=== PATIENT | female | born 1945 | race Hispanic/Latino ===

== ENCOUNTER 2017-11-17 09:55 | Outpatient (CLI) | payer MEDICARE, MEDICAID | END 2017-11-17 09:56 | disposition home or self-care (01) | LOC: BICMRI 09:55 | PROVIDERS: ATTEND Psychiatry & Neurology Neurology | DX: M47.892 Other spondylosis, cervical region (principal); M99.81 Other biomechanical lesions of cervical region; M48.02 Spinal stenosis, cervical region | CPT/HCPCS: 72141 ==

== ENCOUNTER 2017-12-09 12:07 | Outpatient (CLI) | payer MEDICARE, MEDICAID ==
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
== END 2017-12-09 12:08 | disposition home or self-care (01) ==
LOC: BICRAD 12:07
PROVIDERS: ATTEND Family Medicine
DX: M54.5 Low back pain (principal); M47.896 Other spondylosis, lumbar region; M53.3 Sacrococcygeal disorders, not elsewhere classified; M16.11 Unilateral primary osteoarthritis, right hip
CPT/HCPCS: 36415; 72100; 80053; 80061; 82043; 83036; 84439; 84443; 84481

== ENCOUNTER 2018-01-06 11:11 | Outpatient (CLI) | payer MEDICARE, MEDICAID | END 2018-01-06 11:12 | disposition home or self-care (01) | LOC: BICMAMMO 11:11 | PROVIDERS: ATTEND Family Medicine | DX: Z12.31 Encounter for screening mammogram for malignant neoplasm of breast (principal); R92.1 Mammographic calcification found on diagnostic imaging of breast; Z80.3 Family history of malignant neoplasm of breast | CPT/HCPCS: 77063; 77067 ==

== ENCOUNTER 2018-03-17 12:13 | Outpatient (CLI) | payer MEDICARE, OTHER ==
--- NOTE | 2018-03-17 14:15 | RAD ---
CERVICAL SPINE 3 VIEWS: Date: 03/17/18 HISTORY: Cervical radiculopathy, preoperative evaluation. FINDINGS: Upright neutral, flexion, extension, and lateral views of the cervical spine are performed. Fairly ex tensive multilevel disc osteophytosis changes are noted, including C4-C5, C5-C6, and C6-C7. The C7-T1 and T1 vertebral body regions are obscured. No prevertebral abnormal soft tissue swelling. Minimal m otion artifact. No evidence for significant abnormal translation between flexion and extension. IMPRESSION: Fairly extensive cervical spondylosis without evidence for abnormal translation between flexion and e xtension. POS: [facility]
== END 2018-03-17 12:14 | disposition home or self-care (01) ==
LOC: BICRAD 12:13
PROVIDERS: ATTEND Neurological Surgery
DX: M47.22 Other spondylosis with radiculopathy, cervical region (principal); M50.30 Other cervical disc degeneration, unspecified cervical region; M50.00 Cervical disc disorder with myelopathy, unspecified cervical region
CPT/HCPCS: 72040

== ENCOUNTER 2018-05-31 13:58 | Outpatient (CLI) | payer MEDICARE, MEDICAID ==
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
== END 2018-05-31 13:59 | disposition home or self-care (01) ==
LOC: TBSIIMAG 13:58
PROVIDERS: ATTEND Neurological Surgery
DX: M50.20 Other cervical disc displacement, unspecified cervical region (principal); M47.12 Other spondylosis with myelopathy, cervical region; M47.22 Other spondylosis with radiculopathy, cervical region
CPT/HCPCS: 72040

== ENCOUNTER 2018-06-09 20:41 | Inpatient (IN) | payer MEDICARE, OTHER ==
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
[2018-06-09 22:00] LABS: Prothrombin Time 13.3 SEC (12.0-14.7)
[2018-06-09 22:01] LABS: #Eosinphils 0.1 thou/uL (0.0-0.7); #Lymphocytes 1.5 thou/uL (1.20-3.40); %Basophils 0.4 % (0.0-1.0); %Lymphocytes 11.6 % (21.0-51.0); %Monocytes 7.8 % (0.0-10.0); %Neutrophils 79.2 % (42.0-75.0); Hemoglobin 14.2 g/dL (12.0-16.0); Mean Corpuscular HGB CONC 34.5 g/dL (32.0-36.0); Mean Corpuscular Hemoglobin 30.6 pg (27.0-31.0); Mean Corpuscular Volume 88.8 fL (78.0-98.0); Mean Platelet Volume 8.3 fL (7.4-10.4); Platelet Count 177 thou/uL (130-400); RBC Distribution Width 11.9 % (11.5-14.5); Red Blood Cell (RBC) Count 4.62 mill/uL (4.20-5.40); White Blood Cell (WBC) Count 12.7 thou/uL (4.8-10.8)
[2018-06-09 22:19] LABS: ALT (SGPT) 22 U/L (8-55); AST (SGOT) 25 U/L (5-34); Alkaline Phosphatase 115 U/L (40-150); Anion Gap 12 mmol/L (10-20); BUN (Urea Nitrogen) 15 mg/dL (9.8-20.1); Bilirubin, Total 0.4 mg/dL (0.2-1.2); CK (CPK) 320 U/L (29-168); Calc. Creatinine Clearance 0 mL/min (70-130); Calcium 9.2 mg/dL (7.8-10.44); Carbon Dioxide 27 mmol/L (23-31); Chloride 103 mmol/L (98-107); Estimated GFR-MDRD 77; Globulin 2.6 g/dL (2.4-3.5); Glucose 165 mg/dL (83-110); Potassium 3.7 mmol/L (3.5-5.1); Protein, Total 6.6 g/dL (6.0-8.3); Sodium 138 mmol/L (136-145)
[2018-06-09] MEDS ORDERED: Ondansetron PF 4 MG/2 ML Vial ONE (22:21)
[2018-06-09] MEDS ORDERED: Morphine 4 MG/ML VIAL ONE (22:21)
[2018-06-10] MEDS ORDERED: HYDROcodone/Acetaminophen 5/325 mg Tablet PO PRN ×2 (02:31)
[2018-06-10] MEDS ORDERED: Sodium Chloride 0.9% 1,000 ML IV SCH ×2 (02:31→02:33)
[2018-06-10] MEDS ORDERED: Ondansetron PF 4 MG/2 ML Vial IVP PRN ×2 (02:31→02:33)
[2018-06-10] MEDS ORDERED: Ondansetron ODT 4 MG TAB SL PRN (02:31)
[2018-06-10] MEDS ORDERED: Acetaminophen 325 MG TAB PO PRN (02:31)
[2018-06-10] MEDS ORDERED: Dextrose 5% in Water 1,000 ML IV PRN (02:33)
[2018-06-10] MEDS ORDERED: Dextrose 50% Abboject 50 ML SYRINGE SLOW IVP PRN (02:33)
[2018-06-10] MEDS ORDERED: hydrALAZINE 20 MG/ML VIAL SLOW IVP PRN (02:33)
[2018-06-10] MEDS ORDERED: HumaLOG 300 UNITS/3 ML VIAL SC PRN (02:33)
[2018-06-10] MEDS ORDERED: traMADol HCl 50 MG TAB PO PRN ×3 (02:33→09:02)
[2018-06-10] MEDS ORDERED: Promethazine HCl 25 MG/ML VIAL IM PRN (02:33)
[2018-06-10 02:37] VITALS: BMI 35.7
[2018-06-10] MEDS: Morphine 4 MG/ML VIAL SLOW IVP PRN ×2 (02:51→06:29)
[2018-06-10] MEDS: Acetaminophen 1,000 MG in Premix Bag 1 BAG IVPB SCH ×2 (02:57→08:36)
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
[2018-06-10] MEDS: Ibuprofen 600 MG TAB PO SCH ×2 (05:45→14:55)
[2018-06-10] MEDS ORDERED: Famotidine 20 MG TAB PO SCH (09:00)
[2018-06-10] MEDS ORDERED: Polyethylene Glycol 3350 17 GM Packet PO SCH (09:00)
[2018-06-10] MEDS ORDERED: Senokot S 8.6-50 MG TAB PO SCH (09:00)
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
[2018-06-10] MEDS ORDERED: Ibuprofen 600 MG TAB PO SCH (09:15)
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
[2018-06-10] MEDS ORDERED: traMADol HCl 50 MG TAB PO SCH (12:00)
[2018-06-10] MEDS ORDERED: Acetaminophen 500 MG TAB PO SCH (12:00)
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
[2018-06-10 15:37] VITALS: BP 129/77; TEMP 98.3
[2018-06-10] MEDS ORDERED: metFORMIN 500 MG TAB PO SCH (21:00)
[2018-06-10] MEDS ORDERED: Pravastatin Sodium 20 MG TAB PO SCH (21:00)
[2018-06-10] MEDS ORDERED: Gabapentin 300 MG CAP PO SCH (21:00)
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
[2018-06-11] MEDS ORDERED: Losartan 25 MG TAB PO SCH (09:00)
[2018-06-11] MEDS ORDERED: Aspirin 81 mg Enteric Coated Tablet PO SCH (09:00)
== END 2018-06-10 16:39 | disposition home or self-care (01) | DRG 563 ==
LOC: ERS 20:41 → SURG A 06-10 02:11
PROVIDERS: ADMIT Specialist; ATTEND Specialist
DX: S92.001A Unspecified fracture of right calcaneus, initial encounter for closed fracture (principal); S30.1XXA Contusion of abdominal wall, initial encounter; S80.02XA Contusion of left knee, initial encounter; I10 Essential (primary) hypertension; E78.5 Hyperlipidemia, unspecified; I65.09 Occlusion and stenosis of unspecified vertebral artery; I65.29 Occlusion and stenosis of unspecified carotid artery; J45.909 Unspecified asthma, uncomplicated; E11.51 Type 2 diabetes mellitus with diabetic peripheral angiopathy without gangrene; Z90.49 Acquired absence of other specified parts of digestive tract; Z90.710 Acquired absence of both cervix and uterus; Z79.84 Long term (current) use of oral hypoglycemic drugs; Z88.8 Allergy status to other drugs, medicaments and biological substances; Z91.010 Allergy to peanuts; V89.2XXA Person injured in unspecified motor-vehicle accident, traffic, initial encounter
CPT/HCPCS: 36415; 36416; 70450; 70498; 71045; 71260; 72125; 72170; 74177; 80053; 82550; 84484; 85025; 85610; 93005; G0390; J0131; J2270; J2405

== ENCOUNTER 2023-06-03 11:38 | Outpatient (CLI) | payer MEDICARE, MEDICAID | END 2023-06-03 11:39 | disposition home or self-care (01) | LOC: BICMAMMO 11:38 | PROVIDERS: ATTEND Nurse Practitioner | DX: Z12.31 Encounter for screening mammogram for malignant neoplasm of breast (principal); Z80.3 Family history of malignant neoplasm of breast | CPT/HCPCS: 77063; 77067 ==

== ENCOUNTER 2024-10-05 06:14 | Day surgery (SDC) | payer OTHER, MEDICAID ==
[2024-10-04 08:29] VITALS: BMI 33.7
[~2024-10-05 06:14] MED LIST: Fluorouracil 100 MG, Enoxaparin 25 MG, EPINEPHrine 0.3 MG in Ophthalmic Irrigation Solu... IRR SCH
[2024-10-05] MEDS ORDERED: Cyclopentolate 1% Opth Drop 2 ML BOT ONE (06:55)
[2024-10-05] MEDS ORDERED: Lidocaine 1% PF 5 ML VIAL ONE ×2 (08:11→08:30)
[2024-10-05] MEDS ORDERED: PROPOFOL 20 ML ONE (08:12)
[2024-10-05] MEDS ORDERED: CEFAZOLIN 1 GM VIAL ONE (08:30)
[2024-10-05] MEDS ORDERED: Lidocaine 4% PF 5 ML AMP ONE (08:30)
[2024-10-05] MEDS ORDERED: Enoxaparin 30 MG (0.3 mL) SYRINGE ONE (08:30)
[2024-10-05] MEDS ORDERED: Maxitrol 0.1% Opth Oint 3.5 GM TUBE ONE (08:30)
== END 2024-10-05 10:25 | disposition home or self-care (01) ==
LOC: SDC 06:14
PROVIDERS: ATTEND Ophthalmology Retina Specialist
PROC: 08T53ZZ Resection of Left Vitreous, Percutaneous Approach (ICD-10-PCS; principal; 2024-10-05)
DX: H33.012 Retinal detachment with single break, left eye (principal); Z88.5 Allergy status to narcotic agent; Z88.8 Allergy status to other drugs, medicaments and biological substances; Z91.010 Allergy to peanuts; Z91.018 Allergy to other foods; Z91.013 Allergy to seafood; Z91.048 Other nonmedicinal substance allergy status
CPT/HCPCS: 67025; 67108; J0166; J0690; J1650; J2250; J2704; J3010; J3301; J3490; J9190

== ENCOUNTER 2025-01-19 12:55 | Outpatient (CLI) | payer OTHER, MEDICAID | END 2025-01-19 12:56 | disposition home or self-care (01) | LOC: BICMAMMO 12:55 | DX: Z78.0 Asymptomatic menopausal state (principal); M81.0 Age-related osteoporosis without current pathological fracture | CPT/HCPCS: 77080 ==